=== PATIENT | female | born 1960 | race Caucasian/White ===

== ENCOUNTER 2018-01-05 13:13 | Emergency (ER) | payer BC ==
[2018-01-05] MEDS: fentaNYL PF VIAL 100 MCG/2 ML VIAL IM (13:45)
[2018-01-05 14:10] LABS: ADD MAN DIFF? NO
[2018-01-05 14:14] LABS: BASO # 0.1 x10^3/uL (0.0-0.2); BASO % 1 % (0-3); EOS # 0.3 x10^3/uL (0.0-0.7); EOS % 3 % (0-3); HEMOGLOBIN 14.8 g/dL (12.0-15.5); LYMPH # 3.5 x10^3/uL (1.0-4.8); LYMPH % 34 % (24-48); MEAN CORPUSCULAR HEMOGLOBIN 32 pg (25-35); MEAN CORPUSCULAR HGB CONC 35 g/dL (31-37); MEAN CORPUSCULAR VOLUME 90 fL (79-100); MONO # 0.6 x10^3/uL (0.0-1.1); MONO % 5 % (0-9); NEUT % 57 % (31-73); PLATELET COUNT 297 x10^3/uL (140-400); RED BLOOD COUNT 4.66 x10^6/uL (3.50-5.40); RED CELL DISTRIBUTION WIDTH 13.5 % (11.5-14.5); WHITE BLOOD COUNT 10.5 x10^3/uL (4.0-11.0)
[2018-01-05 14:22] LABS: ANION GAP 9 (6-14); BLOOD UREA NITROGEN 13 mg/dL (7-20); BUN/CREATININE RATIO 16 (6-20); CALCIUM 9.3 mg/dL (8.5-10.1); CARBON DIOXIDE 25 mmol/L (21-32); CHLORIDE 107 mmol/L (98-107); CREATININE 0.8 mg/dL (0.6-1.0); GFR 73.9; GLUCOSE 110 mg/dL (70-99); POTASSIUM 4.5 mmol/L (3.5-5.1); SODIUM 141 mmol/L (136-145)
[2018-01-05 14:28] LABS: ALBUMIN 4.2 g/dL (3.4-5.0); ALBUMIN/GLOBULIN RATIO 1.3 (1.0-1.7); ALK PHOS 73 U/L (46-116); ALT (SGPT) 25 U/L (14-59); AST (SGOT) 18 U/L (15-37); TOTAL BILIRUBIN 0.4 mg/dL (0.2-1.0); TOTAL PROTEIN 7.5 g/dL (6.4-8.2)
[2018-01-05 14:31] LABS: LACTIC ACID 0.8 mmol/L (0.4-2.0)
[2018-01-05] MEDS: fentaNYL PF VIAL 100 MCG/2 ML VIAL IV ×2 (14:35→15:35)
[2018-01-05] MEDS: CLINDAMYCIN IV (14:36)
[2018-01-05] MEDS: NORMAL SALINE IV (14:36)
[2018-01-05 15:21] LABS: SEDIMENTATION RATE 9 (0-25)
[2018-01-05] MEDS: MORPHINE SULFATE 4 MG/ML DISP.SYRIN. IV (17:29)
== END 2018-01-05 17:43 | disposition home or self-care (01) ==
LOC: ER 13:13
DX: N61.0 Mastitis without abscess (principal); Z85.820 Personal history of malignant melanoma of skin; Z85.3 Personal history of malignant neoplasm of breast; Z98.890 Other specified postprocedural states
CPT/HCPCS: 36415; 76641; 80053; 83605; 85025; 85651; 86140; 96365; 96375; 99285-25; J2270; J3010; J3490